=== PATIENT | male | born 1975 | race Caucasian/White ===

== ENCOUNTER 2017-02-21 11:25 | Inpatient (IN) | payer SELFPAY ==
[2017-02-21] VITALS (7 sets, daily range): BP systolic 118–188; BP diastolic 67–99; PULSE 45–114; RESP 15–18; O2SAT 96–98
[~2017-02-21] VITALS: Ht 172.7 cm; Wt 84.8 kg
--- NOTE | 2017-02-21 11:28 | ED.REPORT ---
HPI-Chest Pain Under 40 Date of Service Feb 21, 2017 ED Provider: Rex Salamanca Patient is a 41 year old male with a hx of CAD with stent and HTN who presents to the ED complaining of chest tightness since he woke up this morning around 1000. Associated symptoms include bilateral arm numbness. He took 81mg x2 aspirin and nitro x1 without relief. He denies SOB, nausea, diaphoresis, or any other symptoms. He had similar symptoms 3 years ago when he had an [place]. Nursing Notes Stated Complaint: CHEST PAIN Chief Complaint: Chest Pain Nursing Notes Reviewed: Yes Allergies: Coded Allergies: Penicillins (Verified Allergy, Unknown, 02/21/17) No Active Prescriptions or Reported Meds General Time Seen by MD: 11:27 Chief Complaint Chest pain Hx Obtained From: Patient Arrived By: Walk-in Onset Occurred: 1 - 4 hours ago Symptom Duration: Since onset Similar Sx Previous: Yes Risk Factors )( CAD Risk Stratification Family history Known CADNo Diabetes mellitus, No Hyperlipidemia, No Hypertension, No Smoking Risk factors reviewed )( PE Risk Stratification No , No Previous DVT, No Previous PE Risk factors reviewed HEART Score HEART for MACE: High index of susp (2), Nonspec repol disturb (1), Age under 45 (0), 3+ CAD risk factors (2), < or = to NL troponin (0) HEART for MACE Score: 4-7 (mod risk 12%-16.6%) Past Medical History Past Medical History Reports: Coronary artery disease, Hypertension Past Surgical History Cardiac stent Smoking History Unknown if Ever Smoker Social History Drug Use: THC Ambulatory Status Independent Review of Systems Respiratory: Denies: Shortness of breath Cardiovascular: Reports: Chest pain GI: Denies: Nausea Skin: Denies Diaphoresis Neurologic: Reports: Numbness Complete sys rev & neg: except as marked. Physical Exam Initial Vital Signs Vital Signs (First) Date Time Temp Pulse Resp B/P Pulse Ox O2 Delivery O2 Flow Rate FiO2 02/21/17 11:27 37 114 18 188/99 98 Room Air Initial VS: Reviewed Head / Eyes: Atraumatic, Normocephalic Neck: Full range of motion Abdomen / GI: Soft, Non-tender Skin: Warm, Dry Neurologic: Alert, Oriented, Nonfocal Psychiatric: Mood/affect normal, Behavior normal, Normal thought content General/Constitutional: Awake, Alert, No acute distress Respiratory / Chest: Breath sounds NL, Breath sounds = bilat, No respiratory distress Heart Rate / Rhythm: Positive: Tachycardia Interpretation & Diagnostics Lab Results Interpretation Result Diagram: 02/21/17 1135 02/21/17 1135 Test 02/21/17 11:35 White Blood Count 8.6th/mm3 (3.8-10.1) Red Blood Count 5.41mil/mm3 (4.40-5.80) Hemoglobin 15.8g/dL (13.8-17.2) Hematocrit 45.5% (41.0-50.0) Mean Corpuscular Volume 84.1fL (81-100) Mean Corpuscular Hemoglobin 29.2pg (27.0-35.0) Mean Corpuscular Hemoglobin Concent 34.7% (32.0-37.0) Red Cell Distribution Width 13.3% (12.3-15.4) Platelet Count 211bil/L (150-400) Neutrophils (%) (Auto) 59.5% (40-74) Lymphocytes (%) (Auto) 28.5% (14-46) Monocytes (%) (Auto) 10.1% (4-12) Eosinophils (%) (Auto) 0.9% (0-5) Basophils (%) (Auto) 0.5% (0-3) Sodium Level 136mEq/L (134-144) Potassium Level 3.5mEq/L (3.5-5.2) Chloride Level 98mEq/L (97-108) Carbon Dioxide Level 19mmol/L (18-29) Blood Urea Nitrogen 12mg/dL (6-20) Creatinine 0.97mg/dL (0.76-1.27) Estimat Glomerular Filtration Rate 92mL/min (>59) Glucose Level 167mg/dL (60-99) Calcium Level 8.8mg/dL (8.5-10.1) Magnesium Level 2.0mg/dL (1.6-2.6) Total Bilirubin 0.5mg/dL (0.0-1.2) Aspartate Amino Transf (AST/SGOT) 23U/L (0-50) Alanine Aminotransferase (ALT/SGPT) 24U/L (0-44) Alkaline Phosphatase 108U/L (25-150) Creatine Kinase MB 2.5ng/mL (0.0-10.4) Troponin T 0.010ug/L (0.0-0.011) Total Protein 7.7g/dL (6.4-8.4) Albumin 4.6g/dL (3.4-5.0) ECG Interpretation ECG Interpretation: No acute HI Sinus tachycardia with a rate of 104 Probable L atrial enlargement Time: 11:35 Interpreted by: ED physician X-Ray Chest Interpretation Chest Xray Interpretation: IMPRESSION: 1. Left retrocardiac atelectasis or developing consolidation. Dictated by: William Ruvalcaba M.D. on 02/21/2017 at 11:49 Approved by: William Ruvalcaba M.D. on 02/21/2017 at 11:50 View: Portable, 1 view Interpretation / Wet Read by: Interpret - Radiologist Re-Eval/Medical Decision Re-Evaluation/Progress : Time of Eval: 12:05 Re-Evaluation/Progress Note: Discussed plan for admission. Patient understands and agrees with plan. All questions addressed at this time. Consultation : Referral / Consult Name: Bonnie Manzanares DO Consulted With: Hospitalist Call Returned at: 13:00 Claims Correspondence Clerk: Will see patient, Agrees with eval, Agrees with plan, Accepts admit Note: Discussed pt's case. Accepts admit. Counseled Regarding: Diagnosis, Lab results, Need for admission Discharge & Departure Primary Impression: Chest pain Chest pain type: unspecified Qualified Code: R07.9 - Chest pain, unspecified Disposition: ADMITTED TO HOSPITAL Discharge Condition All VS Reviewed: Yes Condition: Stable Referrals: Brian Welch MD (PCP) Scribe Attestation Portions of this note were transcribed by Martha Saini. IDr. Salamanca personally performed the history, physical exam and medical decision-making; I reviewed and confirmed the accuracy of the information in the transcribed note. Signed by: Martha Saini 02/21/2017, 1315 copies to: Brian Welch MD, Kirk H MD Feb 21, 2017 11:28 MARTHA SAINI Feb 21, 2017 11:35
[2017-02-21] MEDS ORDERED: LORazepam 0.5 mg Tablet PO PRN (11:45)
[2017-02-21] MEDS ORDERED: Heparin 25K Unit/500mL 0.45 NS 25,000 UNIT in IV Premix 1 EACH IV SCH (11:45)
[2017-02-21] MEDS ORDERED: MeTOProlol 1 mg/mL 5 mL Inj IVPUSH PRN (11:45)
[2017-02-21] MEDS ORDERED: Heparin 5,000 Unit/mL Inj IVPUSH ONE (11:45)
[2017-02-21] MEDS ORDERED: Nitroglycerin 2% 1 Gm Ointment TOPICAL ONE (11:45)
--- NOTE | 2017-02-21 11:52 | DRSVH ---
PROCEDURE: X-RAY CHEST ONE VIEW, PORTABLE ([id number]) INDICATIONS: chest pain TECHNIQUE: One view of the chest was acquired. COMPARISON: None. FINDINGS: Surgical changes and devices: None. Lungs and pleura: No pleural effusions or pneumothorax. There are bandlike left retrocardiac opacit ies consistent with atelectasis or developing consolidation. Mediastinum: Mediastinal contours appear normal. Heart size is normal. Bones and chest wall: No suspicious bony lesions. Overlying soft tissues appear unremarkable. IMPRESSION: 1. Left retrocardiac atelectasis or developing consolidation. Dictated by: William Ruvalcaba M.D. on 02/21/2017 at 11:49 Approved by: William Ruvalcaba M.D. on 02/21/2017 at 11:50
[2017-02-21 11:53] LABS: BASOPHILS % (AUTO) 0.5 % (0-3); EOSINOPHILS % (AUTO) 0.9 % (0-5); MONOCYTES % (AUTO) 10.1 % (4-12); Mean Corpuscular Hemoglobin 29.2 pg (27.0-35.0); Mean Corpuscular Volume 84.1 fL (81-100); NEUTROPHILS % (AUTO) 59.5 % (40-74); Platelet Count 211 bil/L (150-400)
[2017-02-21 12:20] LABS: TROPONIN T 0.01 ug/L (0.0-0.011)
[2017-02-21] MEDS ORDERED: Polyethylene Glycol (PEG) 17 Gm Powder PO PRN (13:20)
[2017-02-21] MEDS ORDERED: Senna-Docusate 8.6-50 mg Tablet PO PRN (13:20)
[2017-02-21] MEDS ORDERED: Alum-Mag Hydrox-Simeth 30 mL Suspension PO PRN (13:20)
[2017-02-21] MEDS ORDERED: Ondansetron 2 mg/mL 2 mL Inj IVPUSH PRN (13:20)
[2017-02-21 13:57] LABS: Creatine Kinase 117 U/L (21-232)
--- NOTE | 2017-02-21 14:56 | PCM.HPMED ---
Subjective Date of Service Feb 21, 2017 Primary Provider: Admitting Physician: Bonnie Manzanares DO Primary Care Physician: Bhupinder Attending Physician: Bonnie Manzanares DO Chief Complaint: Chest pain History of Present Illness: Alberto Harrison is a 41 year old man with past medical history significant for CAD with past NSTEMI in 2013 s/p stent in right posterolateral branch, hyperlipidemia, hypertension, impaired fasting glucose who presented to the [facility] ED today due to chest pressure since about 1000 this morning. The patient noted a pressure in the center of his chest that wrapped around to his back. He denies any ripping or tearing sensation. He denies any shortness of breath, fever, chills, cough. He did state that the pressure was worsened with exertion when he was walking around his house. He noted that he is starting to develop tingling in his arm and pain extending up to his neck. He did try to take an NTG at home but this did not help. He states he cannot "get comfortable. " He denies any palpitations, nausea, vomiting, diaphoresis, orthopnea or paroxysmal nocturnal dyspnea. The patient stated that this pressure is similar to the pain he had 3 years ago when he has the start of his [place]. Post [place] he did follow up cardiology for a short period of time but then lost his insurance and stopped taking his medications. Review of records reveals the patient having a stenosis in the right coronary artery, specifically a 100% stenosis of posterolateral branch, which was treated with Xience brand drug eluting stents ( 2.5 mmx28 mm proximally and 2.5x12 mm distally). In the ED his vitals were notable for HR of 114, BP of 188/99. He was given full dose ASA, NTG, Ativan and started on a heparin drip. His first troponin was negative. EKG revealed an old inferior infarct but no acute ST changes. Review of Systems: A comprehensive review of systems was conducted with the patient and found to be negative except as above in the History of Present Illness. Allergies Coded Allergies: Penicillins (Verified Allergy, Unknown, 02/21/17) Home Medications Denies taking any medications in about 2 years. H NSTEMI, Xience 2.5x28 distally, 2.5x12 Proximally; initially 100% stenosis; Troponin T peaked at 0.16 [Stent: PLB] - 05/21/2014 Hypertension Hyperlipidemia Hypothyroidism Surgical History PCI with stent placement Family History Father had a three-vessel CABG by the time he was 61. He also had surgery for a "hole" in his heart at age [age]. Paternal grandfather of an [place] at age 70s, and sister with psoriasis. Social History Hx Alcohol Use: No Hx Substance Use: Yes (marijuana) Hx Tobacco Use: No Exam Vital Signs Vital Sign - Last Date Time Temp Pulse Resp B/P Pulse Ox O2 Delivery O2 Flow Rate FiO2 02/21/17 12:30 36.7 64 15 135/84 96 Room Air Exam General: No acute distress, well-developed, well-nourished, appropriately interactive HEENT: Normocephalic, atraumatic. External ears without defect. Pupils equal, round, and reactive to light and accommodation. Anicteric sclerae, moist conjunctivae, and no lid lag. Oropharynx free of erythema and cobble stoning with moist mucosa. Neck: Supple with full range of motion. No jugular venous distension. No bruits. No lymphadenopathy or thyromegaly. Cardiovascular: Regular rate and rhythm with no murmurs, rubs, or gallops appreciated Pulmonary: Clear to auscultation bilaterally with no crackles, wheezes, or rhonchi. Normal respiratory effort with no use of accessory muscles. Abdomen: Bowel tones present. Soft, nontender, nondistended. No hepatosplenomegaly or masses appreciated. Extremities: No clubbing, cyanosis, edema, or lymphadenopathy appreciated. Skin: Normal temperature, turgor, and texture; no rash, ulcers, or subcutaneous nodules appreciated. Neurological: Cranial nerves grossly intact. Normal muscle strength, tone, and bulk. Reflexes, coordination, and sensory function within normal limits. No known gait impairment. Psychiatric: Normal mood and affect. Alert and oriented to person, place, and time. Lab and Diagnostics Labs Troponin negative x1 Result Diagram: 02/21/17 1135 02/21/17 1135 X-Rays, CTs and MRIs X-RAY CHEST ONE VIEW, PORTABLE IMPRESSION: 1. Left retrocardiac atelectasis or developing consolidation. Dictated by: William Ruvalcaba M.D. on 02/21/2017 at 11:49 12-lead ECG Old inferior infarct, no acute ST changes, sinus tachycardia with a rate of 104 , probable L atrial enlargement Assessment & Plan Alberto Harrison is a 41 year old man with past medical history significant for CAD with past NSTEMI in 2014 s/p stent in right posterolateral branch, hyperlipidemia, hypertension, impaired fasting glucose who presented to the [facility] ED today due to chest pressure since about 1000 this morning. Unstable Angina in a patient with CAD s/p stent, present on admission, active -Patient discontinued his cardiac medications about two years ago -Pretest probability of the patient having a cardiac event is rather medium to high with a 79% positive predicted value per Amie Senthil Criteria -CRYSTAL score of 2 -Patient given ASA, will continue daily ASA -Started on a heparin drip, will continue -Will give loading dose of Plavix -Metoprolol, Lipitor -NTG PRN pain, should the pain worsen consider NTG drip -Telemetry -ECHO -EKG PRN pain -Trend troponin -Will contact cardiology Hypertension, present on admission, active -Will restart patient on ACEi Hyperlipidemia, present on admission, active -Check AM lipids. Lipitor as above CODE STATUS: FULL CODE Patient is admitted under observation status with expected length of stay less than 2 midnights due to severity of presenting symptoms, risk of adverse event, and complexity of treatment plan. Pain Evaluation: Adequate Pain Control Resuscitation Status: CPR: Attempt Resuscitation Time spent 45 min Attending Statement Discussed case with dr. Antunez, who says that she will do a stress test after second neg trop. How he will buy medications after this hospital remains an issue, will get social work involved. He did receive an echo in the room when I examined him. Patient is seen and examined at 6 PM, agree with the above findings and plan. Hyun Martinez DO Feb 21, 2017 13:25 Bonnie Manzanares DO Feb 21, 2017 23:31
[2017-02-21] MEDS: 0.9% Sodium Chloride 1,000 ML IV SCH (15:32)
--- NOTE | 2017-02-21 15:46 | DRSVH ---
PROCEDURE: X-RAY CHEST, TWO VIEWS ([id number]) INDICATIONS: infiltrate on portable TECHNIQUE: 2 views of the chest were acquired. COMPARISON: [facility], CR, XR CHEST 1VW (PORTABLE), 02/21/2017, 11:34. FINDINGS: Surgical changes and devices: None. Lungs and pleura: No pleural effusions or pneumothorax. Lungs are clear. Mediastinum: Mediastinal contours are normal. Heart size is normal. Bones and chest wall: No suspicious bony abnormalities. Soft tissues appear unremarkable. IMPRESSION: No acute disease is seen in the two-view chest. The question infiltrate was either subseg mental atelectasis or overlapping vasculature. Dictated by: Keith Krause M.D. on 02/21/2017 at 15:39 Approved by: Keith Krause M.D. on 02/21/2017 at 15:43
--- NOTE | 2017-02-21 16:15 | NUR ---
Patient arrived to [facility]: Patient arrived to [facility] from the ER at 1345. His admit questioned were answered in the ER by the ER nurse. Patient stated that he was still having the 2/10 scale chest pressure that prompted him to come to the Hospital. Patient was given NTG with very little relief from the chest pressure. Patient also has NTG paste in place on his chest. Patient is on a cardiac heparin drip . Telemetry was placed on patient , his heart rate is 50s-60s and it increases to the 90s with activity.
[2017-02-21] MEDS: Sodium Chloride LOK Flush 10 mL Syringe IVFLUSH SCH (17:26)
--- NOTE | 2017-02-21 17:38 | CONS ---
[address] [address] CONSULTATION REPORT PATIENT: YOAN SOUZA : 1975 MR#: [id number] ADMIT: 02/21/2017 JOB ID: [id number] DATE OF SERVICE: 02/21/2017 CARDIOLOGY CONSULTATION: CHIEF COMPLAINT: I was asked by Dr. Manzanares to consult on this patient given chest pain with history coronary disease. HISTORY OF PRESENT ILLNESS: The patient is a 41-year-old man with a past medical history significant for hypertension, as well as a history of an [place] back in 2013. At that time he had a drug-eluting stent placed to the left extension branch. He was unemployed at that time and had medical coverage and took his medications for about a year. Unfortunately after that he lost his coverage and was not able to afford medications. However, he has done his best remain to healthy. He exercises regularly. In fact, yesterday he went for a hike with his mother without chest pain or any other concerning symptoms. He lost weight and does not smoke or drink alcohol. He tries to stay healthy. He has a job and works at [employer] as a cook, however he can not afford insurance at this time. He denies any problems with orthopnea, PND, lower extremity edema, palpitations presyncope, or syncope. Did not have associated shortness of breath or diaphoresis with these symptoms. Nitro did not relieve the symptoms at all. In the ER his heart rate was somewhat high, blood pressure was elevated at 180/99. EKG showed no acute ST changes. PAST MEDICAL HISTORY/PROBLEM LIST: 1. History of non-STEMI with history of drug-eluting stents to the left left ventricular extension branch in June 2014. 2. Hypertension. 3. Hyperlipidemia. 4. Hypothyroid. MEDICATIONS AT TIME OF ADMISSION: None. Stopped taking them about two years ago. ALLERGIES: PENICILLINS. SOCIAL HISTORY: No tobacco use. Occasional marijuana use. No alcohol use. FAMILY HISTORY: Father with early coronary disease and bypass surgery. REVIEW OF SYSTEMS: Overall health: No effusions, night sweats, or weight loss. GI: No problems with ulcers or blood in the stool. Does not think symptoms are related to GERD. : No dysuria or hematuria. Heme: No easy bruising or bleeding. Pulmonary: No history of asthma or shortness of breath. Cardiac: As per HPI. Endocrine: Apparently he has hypothyroidism. No heat or cold intolerance however. Musculoskeletal: No acute joint issues. Was not doing any activity using his arms such as rowing or lifting. Derm: No rash or skin breakdown. Neuro: No chronic headaches, history of stroke or TIA. Ophtho: No acute vision changes. Psych: No acute issues. All other review of systems on a 12-point review of systems is negative. PHYSICAL EXAMINATION: His blood pressure is 143/88 at this time, afebrile, heart rate 67, sats are 97% on room air. [place]: In no acute distress. Speaking in full sentences, without apparent shortness of breath. Head : Normocephalic, atraumatic. Neck: No obvious JV distention. Heart: Regular rate and rhythm, without murmurs, gallops, or rubs appreciated. Lungs: Clear to auscultation. Back: No CVA tenderness to palpation. Abdomen: Soft, nondistended. Extremities: Warm, no edema . Skin: No breakdown appreciated. Neuro: Alert and oriented x3. Gait is not tested. Psych: Appropriate mood and affect. Ophtho: Vision grossly intact. ENT: Mucous members moist. No erythema in the oropharynx. Vascular: no carotid bruits, 2+ distal pulses LABORATORIES: Show a white count 8.7, H and H of 50.8 and 45.8, platelets 211,000. Chemistry today shows sodium 136, potassium 3.5. Chloride and bicarb 98 and 19 respectively. BUN and creatinine 12 and 0.97. Glucose mildly elevated at 167. Troponin negative. CK and CK-MB negative. CURRENT MEDICATIONS: Include nitroglycerin as needed, although it does not seem to relieve the pain. He is also on a heparin drip at this time, lisinopril 5 daily, atorvastatin 80 mg q.h.s., Plavix 75 daily, as well as an aspirin and metoprolol. IMAGING: Echocardiogram is pending. Previous echocardiogram shows wall motion abnormalities. IMPRESSION: The patient has a history of myocardial infarction in 2013. He came in and had stenting of the left ventricular extension branch. He took his medications for a year but stopped them when he lost his insurance coverage. He has been trying to do things to remain healthy, says he is exercising daily, he eats better, has lost about 40 pounds since that time. He developed some chest tightness that radiated down his arms this morning. No shortness of breath. No diaphoresis. It did not get relieved with nitroglycerin and it is not relieved with burping or movement. He has no acute EKG changes at this time and initial troponin is negative. PLAN: 1. Continue with current cardiac medications at this time. 2. We will see how the troponins trend. If the troponins are negative, consider stress testing on him. I spent 35 minutes speaking with the patient discussing his condition, reviewing his medications, reviewing his cath reports, and discussing plans for further assessment. ANA
--- NOTE | 2017-02-21 17:42 | DRSVH ---
[facility] [address] [place] [address] Echocardiogram Report Name: YOAN SOUZA SStudy Date: 02/21/2017 Height: 68 in Hospital Exam Location: [facility] Weight: 194 lb Gender: Male BSA: 2.0 m2 : 1975 Age: 41 yrs BP: 143/88 m mHg Reason For Study: Chest pain Ordering Physician: Pal Santiago Performed By: Davey Forbes Referring Physician: JUANA JENKINS Interpretation Summary 1. Normal left ventricular size, wall thickness and systolic function with wall motion abnormalities as noted and an estimated EF of 55 to 60% 2. Grossly normal right ventricular size and systolic function. 3. No valvular pathology appreciated. Procedure: A two-dimensional transthoracic echocardiogram with color flow and Doppler was performed. The study quality was technically adequate. Comparison is made with the echocardiogram of 05/21/14. The patient was in sinus bradycardia with heart rates between 50-61 bpm during the exam. Left Ventricle: The left ventricle is normal in size. There is normal left ventricular wall thickness. The ejection fraction is estimated to be 55-60%. There is apical inferior wall hypokinesis. Possible mild inferolateral hypokinesis (seen in limited views). Right Ventricle: The right ventricle grossly appears normal in size with probable normal systolic function. Atria: The left atrium is borderline dilated. Right atrial size is normal. The interatrial septum is intact with no evidence for an atrial septal defect. Mitral Valve: The mitral valve is normal. There is trace mitral regurgitation. Aortic Valve: The aortic valve is normal in structure and function. No aortic regurgitation is present. Tricuspid Valve: The tricuspid valve is normal. Pulmonary artery pressures cannot be estimated because of the lack of a measurable TR jet velocity. Pulmonic Valve: The pulmonic valve is not well seen, but is grossly normal. There is a trace or physiologic amount of pulmonic regurgitation. Great Vessels: The aortic root is normal size. The ascending aorta could not be visualized. The pulmonary artery is normal size. The IVC is of normal diameter and collapses greater than 50% with a sniff. This suggests a low right atrial pressure of 3 mm Hg. Pericardium/ Pleura There is no pericardial effusion. There is no pleural effusion. MMode/2D Measurements & Calculations LVIDd: 4.2 cm RA long axis AoV Opening LVIDs: 3.3 cm LA A2 area: 20.5 cm FS: 20.1 % LA A4 area: 19.8 cm RA area Ao Arch Diam (Prox IVSd: 1.0 cm LA length (vol) Trans): 2.9 cm LVPWd: 1.0 cm : 11.2 cm LA vol: 63.3 ml RA vol LA vol index : 25.8 ml RA : 12.8 mm2 IVC diam: 1.7 cm LV vasques. diameter/BSA LV sys. diameter/BSA RVD1 (basal) TAPSE: 1.8 cm (cm/m^2): 2.1 (cm/m^2): 1.7 Doppler Measurements & Calculations Ao V2 max MV E max curt MV E/A: 1.8 PA V2 max : 102.0 cm/sec : 82.1 cm/sec Med Peak E' Curt : 72.7 cm/sec Ao max P.2 mmHgMV A max curt PA mean PG Ao mean PG : 44.8 cm/sec E/E' med: 8.1 : 1.1 mmHg LVOT Max Curt : 86.7 cm/sec sev ratio: 0.81 MV dec time Ao V2 mean LV V1 max PG PA V2 mean : 0.14 sec : 69.7 cm/sec : 51.1 cm/sec Ao V2 VTI: 21.7 cm LV V1 VTI: 17.7 cm Reading Physician:05:42 PM
[2017-02-21] MEDS: Heparin 5,000 Unit/mL Inj IVPUSH PRN (18:42)
--- NOTE | 2017-02-21 18:56 | NUR ---
Chest pressure: Patient c/o chest pressure 2 on 1/10 scale. NTG has some effect but patient stated he still feels the pressure and stated that he did not want to take Morphine. Patient had one episode of nausea vomiting right after he ate a few bites of his dinner. Zofran was given with good relief and patient was able to rest comfortably. Bonding Agent consulted with patient this afternoon and is aware of patients "Chest pressure".Patient stated that the pressure stays at about a 2 on 1-10 scale.
[2017-02-21 20:32] LABS: TROPONIN T 0.206 ug/L (0.0-0.011)
[2017-02-22] VITALS (33 sets, daily range): BP systolic 109–150; BP diastolic 64–86; PULSE 7–81; RESP 7–21; O2SAT 96–99
[2017-02-22] MEDS: Sodium Chloride LOK Flush 10 mL Syringe IVFLUSH SCH ×4 (00:30→23:35)
[2017-02-22] MEDS: Heparin 5,000 Unit/mL Inj IVPUSH PRN (00:34)
[2017-02-22] MEDS: 0.9% Sodium Chloride 1,000 ML IV SCH ×2 (03:07→15:54)
[2017-02-22 04:05] LABS: BASOPHILS % (AUTO) 0.2 % (0-3); EOSINOPHILS % (AUTO) 0.8 % (0-5); Mean Corpuscular Hemoglobin 29.5 pg (27.0-35.0); NEUTROPHILS % (AUTO) 75.1 % (40-74); Platelet Count 164 bil/L (150-400)
--- NOTE | 2017-02-22 04:51 | NUR ---
CHEST PRESSURE Pt reports chest pressure has lessened 08/20. Heparin drip 23/ml/hr. Rested with eyes closed for most of the night. No s/sx of cardiac pain or distress. Denies SOB, n/v. Bed locked lowest position. Nonslip socks on for safety. Call light within reach, using appropriately. Frequent rounding. Pleasant and cooperative with care.
[2017-02-22] MEDS ORDERED: Heparin 1,000 Units/500 mL NS Premix IV ONE (12:19)
[2017-02-22] MEDS ORDERED: Heparin 10,000 Unit/1,000 mL NS Premix IV ONE ×2 (12:19→13:22)
[2017-02-22] MEDS ORDERED: Heparin 1,000 Unit/mL 10 mL Inj ONE (12:19)
--- NOTE | 2017-02-22 12:51 | NUR ---
Cardiac Microbiology Instructor: Patient was brought to the cardiac clinical laboratory manager at 1250. His Heparin drip was stopped at 1230. Patient stated that he is not having chest pain or pressure at this time. Patient has been NPO since midnight except for a sip of water with his medications this morning. Patient has not had caffeine for over 24 hours also.
[2017-02-22] MEDS ORDERED: fentaNYL-PF 50 mCg/mL 2 mL Inj ONE (13:04)
[2017-02-22] MEDS ORDERED: Nitroglycerin 50,000 mcg/250 mL D5W Premix IV ONE (14:02)
[2017-02-22] MEDS ORDERED: Abciximab Bolus 2 mg/mL 5 mL Inj ONE (14:16)
[2017-02-22] MEDS ORDERED: Atropine 1 mg/10 mL (Code) Syringe IVPUSH PRN (14:50)
[2017-02-22] MEDS ORDERED: 0.9% Sodium Chloride 250 ML BOLUS IV PRN (14:50)
[2017-02-22] MEDS ORDERED: HYDROcodone-APAP 5-325 mg Tablet PO PRN (14:50)
[2017-02-22] MEDS ORDERED: 0.9% Sodium Chloride 800 ML IV ONE (14:50)
[2017-02-22] MEDS ORDERED: Ondansetron 2 mg/mL 2 mL Inj IVPUSH PRN (14:50)
[2017-02-22] MEDS ORDERED: Sodium Chloride LOK Flush 10 mL Syringe IVFLUSH PRN (14:50)
--- NOTE | 2017-02-22 15:28 | NUR ---
Patient Transferred to CCU : Patient was transferred to CCU room 2017 after he had cardiac cath and stent placed. Report was given to CCU Nurse taking over patient care . Patients belongings were brought to his new room on CCU.
--- NOTE | 2017-02-22 17:23 | NUR ---
Post heart cath: Pt s/p heart cath with stent placed to circumflex artery. Sheath in on arrival to CCU, groin site stable. Sheath pulled by laboratory analyst staff at 1710, manual pressure held, gauze and tegaderm dressing in place. Pt to lay flat for 2 hours, then can be at 30 degrees for 3 hours. Pt informed of timing and times written on board. Groin site monitoring continues. Care ongoing.
--- NOTE | 2017-02-22 19:40 | PCM.PNMED ---
Subjective Date of Service Feb 22, 2017 Subjective Patient is seen and examined In the CCU 2016. He is awake and alert, says that he tolerated the procedure well. Is able to eat. He was asked to lay flat until his bleeding from the right groin area settles down. Pt s/p heart cath with stent placed to circumflex artery. Exam Vital Signs Vital Sign - Last Date Time Temp Pulse Resp B/P Pulse Ox O2 Delivery O2 Flow Rate FiO2 02/22/17 09:08 36.8 66 16 115/72 98 Room Air Intake and Output 02/21/17 02/21/17 02/22/17 Cumulative From/Thru 15:00 23:00 07:00 02/21/17 11:27 - 02/22/17 06:12 Intake Total 150 ml 150 ml Balance 150 ml 150 ml Intake Oral 150 ml 150 ml # Voids 5 5 Exam General: No acute distress, well-developed, well-nourished, appropriately interactive HEENT: Normocephalic, atraumatic. External ears without defect. Pupils equal, round, and reactive to light and accommodation. Neck: Supple with full range of motion. No jugular venous distension. No bruits. No lymphadenopathy or thyromegaly. Cardiovascular: Regular rate and rhythm with no murmurs, rubs, or gallops appreciated Pulmonary: Clear to auscultation bilaterally with no crackles, wheezes, or rhonchi. Normal respiratory effort with no use of accessory muscles. Limited exam is done as patient was told to lay flat supine Abdomen: Bowel tones present. Soft, nontender, nondistended. No hepatosplenomegaly or masses appreciated. Extremities: No clubbing, cyanosis, edema, or lymphadenopathy appreciated. Skin: Normal temperature, turgor, and texture; no rash, ulcers, or subcutaneous nodules appreciated. Neurological: No focal deficits Psychiatric: Normal mood and affect. Alert and oriented to person, place, and time. Skin: Small oozing incision area in Right femoral area IVs and Medications Medications Reviewed: Medications were reviewed in detail Lab and Diagnostics Result Diagram: 02/22/17 03302/22/17 033 X-Rays, CTs and MRIs X-RAY CHEST ONE VIEW, PORTABLE IMPRESSION: 1. Left retrocardiac atelectasis or developing consolidation. Dictated by: William Ruvalcaba M.D. on 02/21/2017 at 11:49 12-lead ECG Old inferior infarct, no acute ST changes, sinus tachycardia with a rate of 104 , probable L atrial enlargement Cardiac Echo Impressions Interpretation Summary 1. Normal left ventricular size, wall thickness and systolic function with wall motion abnormalities as noted and an estimated EF of 55 to 60% 2. Grossly normal right ventricular size and systolic function. 3. No valvular pathology appreciated. Assessment & Plan Alberto Harrison is a 41 year old man with past medical history significant for CAD with past NSTEMI in 2013 s/p stent in right posterolateral branch, hyperlipidemia, hypertension, impaired fasting glucose who presented to the [facility] ED today due to chest pressure since about 1000 this morning. Unstable Angina in a patient with CAD s/p stent, present on admission, active -Patient discontinued his cardiac medications about two years ago -Pretest probability of the patient having a cardiac event is rather medium to high with a 79% positive predicted value per Amie Senthil Criteria -CRYSTAL score of 2 -Patient given ASA, will continue daily ASA -Started on a heparin drip, will continue -loading dose of Plavix 300 mg followed by 75 mg QD -Metoprolol, Lipitor -NTG PRN pain, should the pain worsen consider NTG drip -Telemetry -ECHO: Did not appear to show any new ischemic findings -EKG PRN pain -first trop was neg, second one 0.206. -Cardiology has seen the patient, took him to the catheterization procedure today after second Troponin came back elevated. Stated patient is status post stenting their dictations are pending, doing well -His ability to buy medication continues to be an issue, as his financial status has not changed. Asked to SW to help him with means to pay for his meds Hypertension, present on admission, improved -Continue KRISTIN inhibitor Hyperlipidemia, present on admission, active -Lipitor as above - Lipid Panel showed triglycerides 276 cholesterol 203 LDL 114 VLDL 55 HDL 23 CODE STATUS: FULL CODE Patient is admitted under observation status with expected length of stay less than 2 midnights due to severity of presenting symptoms, risk of adverse event, and complexity of treatment plan. Pain Evaluation: Adequate Pain Control Resuscitation Status: CPR: Attempt Resuscitation Time spent 25 min Bonnie Manzanares DO Feb 22, 2017 10:06
--- NOTE | 2017-02-22 20:40 | CS94 ---
[address] [address] DIAGNOSTIC CARDIAC CATHETERIZATION PATIENT: YOAN SOUZA : 1975 MR#: [id number] ADMIT: 02/21/2017 JOB ID: [id number] SERVICE DATE: 02/22/2017 PROCEDURES PERFORMED: 1. Left heart catheterization with coronary angiography. 2. Percutaneous intervention of the circumflex artery. 3. IVUS of the circumflex artery INDICATIONS: A 41-year-old man with persistent anginal-type symptoms, now evidence of a [id number] MO who presents for urgent assessment by cardiac catheterization. DESCRIPTION OF PROCEDURE: Informed consent was obtained. Patient brought to catheterization laboratory. Bilateral groins were prepped and draped in sterile fashion. The right femoral artery was anesthetized with lidocaine. Using modified Seldinger technique and a micropuncture kit, access was obtained. The 5-Nigerien sheath was advanced. Next, a 5-Nigerien JL4 catheter was advanced over a wire and used to cannulate the left coronary artery and angiographic views obtained. This catheter was removed and a 5-Nigerien JR4 catheter was advanced over a wire and used to cannulate the right coronary artery and angiography was obtained. The pigtail catheter advanced in the left ventricle under fluoroscopic guidance. Left ventricular pressure tracings were obtained and following pullback, aortic pressure tracings were obtained. Next attention was focused on the circumflex artery where a high-grade stenosis and culprit lesion was identified. Heparin was given for anticoagulation. ACTs were checked and remained in therapeutic range during the intervention. Ultimately a 6-Nigerien JL4 guide was used to recannulate the left coronary artery. A P[place]to[place] wire was advanced across the area of stenosis. A 2 x 12 mm balloon was advanced across the area of stenosis and inflated x1. Next, IVUS was advanced in the vessel to assess the plaque and evaluate the vessel size. The vessel distal to the area of stenosis appeared in the range of 2-2.1. More proximal it was closer to 2.2 or 3. Based upon this, a 2.25 x 18 mm Xience drug-eluting stent was advanced to the area of stenosis. This was inflated at nominal pressures. The delivery balloon was removed and a 2.25 noncompliant balloon was advanced to the area of stenting and inflated to higher pressures for post dilation. Followup angiographic views after stenting post dilation and IC nitroglycerin revealed an excellent angiographic result with no significant residual stenosis noted, dissection, and brisk flow in the artery. The case was ended. The angiographic view of the right femoral access site was reviewed prior to achieving hemostasis with a StarClose device. There were no complications. FINDINGS: CORONARIES: 1. Left main: This vessel has no significant disease. 2. Circumflex artery: This essentially gives rise to a very small first obtuse marginal branch and then continues onto into the terminal branches. The 1st branch has some ostial disease but has brisk flow into it. The 2nd branch has a high-grade stenosis estimated at 98% with CRYSTAL II flow distally. As noted, this was the vessel treated as the culprit lesion. It was initially pre-dilated with a 2 mm balloon, assessed with IVUS for better assessment of the vessell, treated with a 2.25 x18 mm drug-eluting stent that was post dilated with a noncompliant balloon of the same size to higher atmospheres. Again, after intervention, there an excellent angiographic result. 3. Left anterior descending artery: There is no obstructive disease appreciated. 4. Right coronary artery: There is an area of stenosis in the early part of the mid conduit segment which is moderately stenosed. This appears relatively stable compared to prior cardiac catheterizations. The vessel continues down with mild disease. The area of prior stenting is widely patent without evidence of restenosis. Hemodynamics: Left ventricular pressure is in the range of 12 to 15 (postcontrast). No gradient on pullback. MEDICATIONS: Given the case, please see [facility] labor records. The patient was given a ReoPro bolus x1, as well as 300 mg of Plavix at the end of the case. IMPRESSION: 1. Evidence of a high-grade stenosis of a branch of the terminal obtuse marginal branches. Successfully treated with balloon angioplasty and stenting with a drug-eluting stent. 2. IVUS of the circumflex artery 3. No other obstructive disease appeciated. 4. EDP in the range of 12 to 15 mm Hg (post contrast) PLAN: Patient will need to remain on Plavix at least a year, along with aspirin. Would recommend continued modification of risk factors with cholesterol medications and treatment of blood pressure. [facility]
[2017-02-23] VITALS: BP 127/85; PULSE 61; RESP 21; O2SAT 96
[2017-02-23 01:00] VITALS: BP 115/71; PULSE 64; RESP 20
--- NOTE | 2017-02-23 01:43 | NUR ---
P) Cardiac Pt. S/P heart cath, R groin site with small amount sanguineous oozing on dressing, no change in amount since beginning of shift. Site is soft with no evidence of hematoma, dorsalis pedis pulses positive, no edema, denies chest pain, does have some back pain from laying flat for so long. Cardiac rhythm is sinus/sinus sven with rates as low as 48bpm when sleeping. I) Meds per 's orders, some education on groin support with cough and pulmonary hygiene. E) Resting quietly with eyes closed, will transfer to [facility].
[2017-02-23 03:52] LABS: Mean Corpuscular Hemoglobin 29.4 pg (27.0-35.0); Mean Corpuscular Volume 84.2 fL (81-100)
[2017-02-23 05:03] VITALS: BP 109/68; PULSE 58; RESP 20; O2SAT 93
[2017-02-23 08:29] VITALS: BP 126/82; PULSE 74; RESP 12; O2SAT 97
[2017-02-23] MEDS: Sodium Chloride LOK Flush 10 mL Syringe IVFLUSH SCH (08:45)
--- NOTE | 2017-02-23 10:54 | PROG NOTE ---
[address] [address] PROGRESS NOTE PATIENT: YOAN SOUZA : 1975 MR#: [id number] ADMIT: 02/21/2017 JOB ID: [id number] DATE: 02/23/2017 CHIEF COMPLAINT: The patient came with a non-STEMI. He status post stenting with a drug-eluting stent to the obtuse marginal branch. He is doing very well. He denies any chest pain, chest pressure. He has been up to walk around without problems. Telemetry shows no arrhythmias. CURRENT MEDICATIONS: Include: 1. Clopidogrel 75 a day. 2. Aspirin 325 a day. 3. Lisinopril 5 mg daily. 4. Metoprolol 12.5 every 12. 5. Atorvastatin 80 mg at bedtime. 6. Other p.r.n. medications. PHYSICAL EXAMINATION: Blood pressure is 126/82, heart rate 74, sats are 97% on room air. General: In no acute distress. Speaking in full sentences without apparent shortness of breath. Head and neck exam: Normocephalic, atraumatic. Neck: No obvious JV distention. Heart exam regular rate and rhythm, no obvious murmurs, gallops, or rubs appreciated. Lungs clear. Back no CV tenderness to palpation. Abdomen is soft, nontender. Groin site is good. No bruising. Only minor tenderness with palpation. No swelling distal. No edema. LABORATORIES: Show white count 9.9. H and H 15.6 and 44.7. Platelets a little bit decreased at 128,000. Chemistry today shows sodium 138, potassium 4.3, chloride and bicarb 104 and 20, respectively. BUN and creatinine 10 and 0.70. IMPRESSION: The patient is doing very well after stenting. His other stent looked widely patent. He does have some other coronary disease which does not appear significant at this time. PLAN: 1. He will need to be on clopidogrel for at least a year. He is going to find out where he can get it at the least expensive. I emphasized to him that it is important that he take this every day without fail along with aspirin. 2. I encouraged him to fill the medicine for his cholesterol given that he has got coronary disease at an early age and has some evidence of other nonobstructive coronary disease at this time. 3. Blood pressure is well controlled on the current medications. Again we are going to see if he can find a place where he could fill these medications inexpensively. 4. His platelets are slightly decreased and this is likely related to the Iib-IIIa inhibitor I used. This should increase back to with normal limits, and I will review that at his follow-up appointments. 5. I am going to get him a followup with me at the end of the week. From my perspective, he should be able to go home. He is advised to avoid heavy lifting for the next four days. He may gradually increase his activity. Again I spent a great deal of time explaining that the extreme importance of taking the clopidogrel and aspirin on a daily basis.
--- NOTE | 2017-02-23 11:18 | NUR ---
Social Work: Initial Assessment/Multidisciplinary Rounds D: Per EMR review, pt is a 41 year old male admitted for chest pain. Pt is self-pay insurance. NOK is Florentino Harrison, mother, [phone]. Pt has no PCP and declined for [facility] to make him an appointment with the residency clinic. Readmit score is low, 08/18. Pt discussed in am rounds. Pt has no insurance; MD is aware and will try to use the $4 medication list to prescribe. Capacity for self-care discussed- no concerns at this time. Pt has been participating in all selfcare during admission and continues to ambulate. [facility] [employer] met with the patient at bedside. Sw role explained, contact information and d/c planning checklist provided. Pt lives in [place] with [facility]. Pt is I at baseline, uses no DME and works as a cook at [employer]. Pt is concerned about his financial status and his bill for this hospitalization. [facility] [employer] provided the patient with the Financial Assistance/[employer] Care Application. Pt states he is over-resourced for Medicaid and has already looked into this option. [facility] provided the patient with information about the [facility] [employer] ([employer]). Pt will follow up with them to inquire about his insurance options. The patient expresses no other concerns or barriers to d/c. Pt's mother will transport home once medically stable. A: Pt who is I at baseline. P: Anticipate pt to discharge home via POV; [facility] care application and [employer] info provided. SYMONE Moreno Addendum: 02/23/17 at 1131 by PASTORA ALFORD Amended: Links added.
[2017-02-23 12:03] VITALS: BP 128/78; PULSE 65; RESP 16; O2SAT 97
--- NOTE | 2017-02-23 12:36 | PCM.DIMED ---
IDA RENDON DO 02/23/17 1220: Discharge Instructions Date of Service Feb 23, 2017 Dates of Hospitalization Feb 21, 2017 at 13:11 Discharge Diagnosis Discharge Diagnosis Unstable Angina in a patient with CAD s/p stent Hypertension Hyperlipidemia Medication Instructions Additional med instructions Clopidogrel 75 mg PO daily. Aspirin 325 mg PO daily. Lisinopril 5 mg PO daily. Metoprolol Tartrate 12.5 mg every 12 hours. Atorvastatin 80 mg PO at bedtime. Diet Discharge Diet: Heart Healthy Activity Discharge Activity: Other (no lifting > 15 lbs for at least 4 days. Do not soak in the bath tub for 2 weeks (showers only). ) Call your provider Call your provider for: Fever or Chills, Shortness of breath, Bleeding, Chest pain, Vomitting, Excessive diarrhea, Weakness (unilateral) Patient Instructions Patient Instructions Take medications daily as prescribed. Avoid heavy lifting for at least 4 days. Avoid soaking in the tub or swimming for 2 weeks (Showers are okay). Follow up with cardiology in 1 week. Establish care with a primary care physician. The residency clinic is a great option. Follow-up Provider: Leatha Antunez MD Follow-up with PCP in: 1 week Provider: [facility] Follow-up in: 2 weeks (Establish Care.) Lucia Ahuja DO 02/23/17 1326: Discharge Instructions Attending's Statement The patient was seen and examined together with Dr. Rendon on 02/23/17 and I agree with the history, exam and plan as outlined in the note above. IDA RENDON DO Feb 23, 2017 12:20 Lucia Ahuja DO Feb 23, 2017 13:26
[2017-02-23] MEDS ORDERED: LISI-571 PO (12:42)
[2017-02-23] MEDS ORDERED: METO25TA6 PO (12:42)
[2017-02-23] MEDS ORDERED: ATOR80TA PO (12:42)
[2017-02-23 12:45] VITALS: PULSE 61
--- NOTE | 2017-02-23 13:44 | NUR ---
Discharge Note: Discussed discharge instructions and medications with patient and his parents. Patient was given hardcopy of Rx along with educational education for each new medication. Financial assistance form was also provided to patient. Patient verbalized understanding of follow up appointments. Patient is able to ambulate in room and halls without report of CP, SOB or dizziness. Strong/steady gait noted. Tele: Sinus 70-80's. VSS. R groin site is soft, mildly tender to to touch, no bruising or oozing noted to site. Pedal pulses palpable. No numbness or tingling to lower extremities. Post heart cath precautions were also discussed and all questions were answered. PIV DC'd by RN. Patient exited unit with all personal belongings on foot, was escorted to his ride downstairs by staff and was transported home in a personal vehicle by his parents.
--- NOTE | 2017-02-23 20:30 | PCM.DC.MED ---
Discharge Summary Date of Service Feb 23, 2017 Dates of Hospitalization Date of Hospital Admission Feb 21, 2017 at 13:11 Date of Discharge: Feb 23, 2017 Providers: Admitting Physician: Bonnie Manzanares DO Primary Care Physician: Bhupinder Attending Physician: Lucia Ahuja DO Diagnosis at Time of Discharge Diagnosis at Time of Discharge Unstable Angina in a patient with CAD s/p stent Hypertension Hyperlipidemia Procedures XRay, CTs & MRIs X-RAY CHEST ONE VIEW, PORTABLE IMPRESSION: 1. Left retrocardiac atelectasis or developing consolidation. Dictated by: William Ruvalcaba M.D. on 02/21/2017 at 11:49 ECG 12 Lead Old inferior infarct, no acute ST changes, sinus tachycardia with a rate of 104 , probable L atrial enlargement Cardiac Echo Impression Interpretation Summary 1. Normal left ventricular size, wall thickness and systolic function with wall motion abnormalities as noted and an estimated EF of 55 to 60% 2. Grossly normal right ventricular size and systolic function. 3. No valvular pathology appreciated. Brief History Alberto Harrison is a 41 year old man with past medical history significant for CAD with past NSTEMI in 2013 s/p stent in right posterolateral branch, hyperlipidemia, hypertension, impaired fasting glucose who presented to the [facility] ED due to chest pressure for several hours. Patient was admitted for chest pain rule out OR as he has previous history of OR. The patient admits that OR he did follow up with cardiology for a short period of time but then lost his insurance and stopped taking his medications except for ASA. Cardiology was consulted and s/p cardiac cath he was found to have evidence of a high-grade stenosis of a branch of the terminal obtuse marginal branches. This was successfully treated with balloon angioplasty and stenting with a drug- eluting stent. The case was discussed with cardiology (Dr. Antunez) and patient was discharged home with all medications on the $4 [facility] list along with plavix which is $15 at [facility]. The patient stated that he could afford these medications and would take them regularly. Patient was discharged home with close follow up appointments with cardiology and primary care through the [facility] residency clinic. Hospital Course Alberto Harrison is a 41 year old man with past medical history significant for CAD with past NSTEMI in 2013 s/p stent in right posterolateral branch, hyperlipidemia, hypertension, impaired fasting glucose who presented to the [facility] ED today due to chest pressure since about 1000 this morning. Unstable Angina in a patient with CAD s/p stent, present on admission, active -Patient discontinued his cardiac medications about two years ago -Pretest probability of the patient having a cardiac event is rather medium to high with a 79% positive predicted value per Amie Senthil Criteria -CRYSTAL score of 2 -Patient given ASA, will continue daily ASA -Started on a heparin drip, will continue -Will give loading dose of Plavix -Metoprolol, Lipitor -NTG PRN pain, should the pain worsen consider NTG drip -Telemetry -ECHO -EKG PRN pain -Trend troponin -Will contact cardiology Hypertension, present on admission, active -Will restart patient on ACEi Hyperlipidemia, present on admission, active -Check AM lipids. Lipitor as above Exam Vital Signs (Last) Date Time Temp Pulse Resp B/P Pulse Ox O2 Delivery O2 Flow Rate FiO2 02/23/17 12:45 61 02/23/17 12:03 36.8 16 128/78 97 Room Air Exam General: No acute distress, well-developed, well-nourished, appropriately interactive HEENT: Normocephalic, atraumatic. External ears without defect. Pupils equal, round, and reactive to light and accommodation. Neck: Supple with full range of motion. No jugular venous distension. No bruits. No lymphadenopathy or thyromegaly. Cardiovascular: Regular rate and rhythm with no murmurs, rubs, or gallops appreciated Pulmonary: Clear to auscultation bilaterally with no crackles, wheezes, or rhonchi. Normal respiratory effort with no use of accessory muscles. Abdomen: Bowel tones present. Soft, nontender, nondistended. No hepatosplenomegaly or masses appreciated. Extremities: No clubbing, cyanosis, edema, or lymphadenopathy appreciated. Skin: Normal temperature, turgor, and texture; no rash, ulcers, or subcutaneous nodules appreciated. Neurological: No focal deficits Psychiatric: Normal mood and affect. Alert and oriented to person, place, and time. Skin: Small oozing incision area in Right femoral area Test 02/21/17 11:35 02/21/17 19:27 02/22/17 03:30 02/22/17 11:45 Hemoglobin A1c 5.3% (4.8-5.6) Magnesium Level 2.0mg/dL (1.6-2.6) Total Bilirubin 0.5mg/dL (0.0-1.2) Aspartate Amino Transf (AST/SGOT) 23U/L (0-50) Alanine Aminotransferase (ALT/SGPT) 24U/L (0-44) Alkaline Phosphatase 108U/L (25-150) Total Protein 7.7g/dL (6.4-8.4) Albumin 4.6g/dL (3.4-5.0) Total Creatine Kinase 386U/L (21-232) Creatine Kinase MB 51.6ng/mL (0.0-10.4) Creatine Kinase MB % 13.4% (0.0-5.0) Troponin T 0.206ug/L (0.0-0.011) Neutrophils (%) (Auto) 75.1% (40-74) Lymphocytes (%) (Auto) 16.8% (14-46) Monocytes (%) (Auto) 7.0% (4-12) Eosinophils (%) (Auto) 0.8% (0-5) Basophils (%) (Auto) 0.2% (0-3) Triglycerides Level 276mg/dL (0-149) Cholesterol Level 203mg/dL (100-199) LDL Cholesterol, Calculated 114.800mg/dL (0-99) VLDL Cholesterol 55.200mg/dL HDL Cholesterol 33mg/dL (>39) Cholesterol/HDL Ratio 6.15 (0.0-4.4) Activated Partial Thromboplast Time 32.3sec (22.8-33.0) Test 02/23/17 03:35 White Blood Count 9.9th/mm3 (3.8-10.1) Red Blood Count 5.31mil/mm3 (4.40-5.80) Hemoglobin 15.6g/dL (13.8-17.2) Hematocrit 44.7% (41.0-50.0) Mean Corpuscular Volume 84.2fL (81-100) Mean Corpuscular Hemoglobin 29.4pg (27.0-35.0) Mean Corpuscular Hemoglobin Concent 34.9% (32.0-37.0) Red Cell Distribution Width 13.5% (12.3-15.4) Platelet Count 128bil/L (150-400) Sodium Level 138mEq/L (134-144) Potassium Level 4.3mEq/L (3.5-5.2) Chloride Level 104mEq/L (97-108) Carbon Dioxide Level 20mmol/L (18-29) Blood Urea Nitrogen 10mg/dL (6-20) Creatinine 0.78mg/dL (0.76-1.27) Estimat Glomerular Filtration Rate 118mL/min (>59) Glucose Level 109mg/dL (60-99) Calcium Level 9.4mg/dL (8.5-10.1) Discharge Medications Discharge Medications Atorvastatin (Lipitor) 80 Mg Tablet 80 MG PO HS Prescribed by: IDA RENDON DO Lisinopril (Lisinopril) 5 Mg Tablet 5 MG PO DAILY Prescribed by: IDA RENDON DO Metoprolol Tartrate (Metoprolol Tartrate) 25 Mg Tablet 12.5 MG PO BID Prescribed by: IDA RENDON DO Additional med instructions Clopidogrel 75 mg PO daily. Aspirin 325 mg PO daily. Lisinopril 5 mg PO daily. Metoprolol Tartrate 12.5 mg every 12 hours. Atorvastatin 80 mg PO at bedtime. Followup Plan Disposition: home Discharge Diet: Heart Healthy Discharge Activity: Other (no lifting > 15 lbs for at least 4 days. Do not soak in the bath tub for 2 weeks (showers only). ) Patient Instructions Take medications daily as prescribed. Avoid heavy lifting for at least 4 days. Avoid soaking in the tub or swimming for 2 weeks (Showers are okay). Follow up with cardiology in 1 week. Establish care with a primary care physician. The residency clinic is a great option. Follow-up Provider: Leatha Antunez MD Follow-up with PCP in: 1 week Provider: [facility] Follow-up in: 2 weeks (Establish Care.) Time spent > 35 minutes. Attending Statement The patient was seen and examined together with Dr. Rendon on 02/23/17 and I have added additional information to the note above. copies to: [facility] IDA RENDON DO Feb 23, 2017 20:27 Lucia Ahuja DO Feb 26, 2017 15:45
== END 2017-02-23 13:43 | disposition home or self-care (01) | DRG 247 ==
LOC: SED 11:25 → MPC 13:11 → OBSVTOIN 13:11 → CCU 02-22 14:30 → PCC 02-23 02:03
PROVIDERS: ADMIT Family Medicine; ATTEND Family Medicine
PROC: 027034Z Dilation of Coronary Artery, One Artery with Drug-eluting Intraluminal Device, Percutaneous Approach (ICD-10-PCS; principal; 2017-02-22)
PROC: 4A023N7 Measurement of Cardiac Sampling and Pressure, Left Heart, Percutaneous Approach (ICD-10-PCS; 2017-02-22)
PROC: B2111ZZ Fluoroscopy of Multiple Coronary Arteries using Low Osmolar Contrast (ICD-10-PCS; 2017-02-22)
PROC: B240ZZ3 Ultrasonography of Single Coronary Artery, Intravascular (ICD-10-PCS; 2017-02-22)
DX: I25.110 Atherosclerotic heart disease of native coronary artery with unstable angina pectoris (principal); I10 Essential (primary) hypertension; E78.5 Hyperlipidemia, unspecified; F12.90 Cannabis use, unspecified, uncomplicated; I25.2 Old myocardial infarction; Z95.5 Presence of coronary angioplasty implant and graft; Z91.120 Patient's intentional underdosing of medication regimen due to financial hardship